=== PATIENT | female | born 1995 | race Two or more races ===

== ENCOUNTER 2017-01-23 20:21 | Emergency (ER) | payer BC ==
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
== END 2017-01-23 23:00 | disposition home or self-care (01) ==
LOC: CFTX 20:21
DX: S33.5XXA Sprain of ligaments of lumbar spine, initial encounter (principal); Z88.0 Allergy status to penicillin; V43.62XA Car passenger injured in collision with other type car in traffic accident, initial encounter
CPT/HCPCS: 72100; 84703; 99283